=== PATIENT | female | born 1995 | race Caucasian/White ===

== ENCOUNTER 2017-10-23 08:26 | Emergency (ER) | payer BC ==
[2017-10-23] MEDS ORDERED: NS 0.9% 1000 ML* 1,000 ML IV ONE (08:57)
[2017-10-23] MEDS ORDERED: Dexamethasone IV* 4 MG/ML 5 ML VIAL (20 MG) IVPB ONE (08:57)
[2017-10-23] MEDS ORDERED: Dexamethasone IV* 4 MG/ML 1 ML (4 MG) ONE (09:01)
[2017-10-23] MEDS ORDERED: Dexamethasone IV* 4 MG/ML 1 ML (4 MG) IV SLOW PU ONE (09:01)
--- NOTE | 2017-10-23 09:42 | ED ---
Complex/Multi-Sys Presentation - HPI Summary HPI Summary: Patient is a 22-year-old female who presents to the emergency department with numerous complaints. Patient notes that she has been having symptoms of fatigue , malaise 1 month. Over the last week she developed a sore throat and nausea. Denies vomiting, diarrhea, urinary symptoms. She does note some upper abdominal pain intermittently. She was seen at health clinic yesterday and started on Keflex. Had a negative strep. Patient presents to the ER today because she was having difficulty swallowing liquids. Past medical history of asthma, IBS. Symptoms are mild to moderate in severity. Eating and swallowing makes symptoms worse. Nothing makes symptoms better. - History Of Current Complaint Hx Obtained From: Patient <NiiFermin - Last Filed: 10/23/17 11:56> <Ramy Adrian - Last Filed: 10/23/17 15:50> - History Of Current Complaint Chief Complaint: EDThroatPain Time Seen by Provider: 10/23/17 08:39 - Allergies/Home Medications Allergies/Adverse Reactions: Allergies Allergy/AdvReac Type Severity Reaction Status Date / Time No Known Allergies Allergy Verified 03/03/16 21:59 Home Medications: Home Medications Cephalexin CAP* [Keflex CAP*] 500 mg PO TID 10/23/17 [History Confirmed 10/23/17 ] Cholecalciferol TAB* [Vitamin D TAB*] 500 units PO DAILY 10/23/17 [History Confirmed 10/23/17] Fexofenadine (NF) [Natalie (NF)] 60 mg PO DAILY 10/23/17 [History Confirmed 08/11] LevoCETirizine TAB (NF) [Xyzal TAB (NF)] 5 mg PO DAILY 10/23/17 [History Confirmed 10/23/17] Magnesium Oxide [Magnesium] 250 mg PO DAILY 10/23/17 [History Confirmed 10/23/17 ] PMH/Surg Hx/FS Hx/Imm Hx Previously Healthy: Yes Respiratory History: Reports: Hx Asthma Infectious Disease History: No Infectious Disease History: Denies: History Other Infectious Disease, Traveled Outside the [place] in Last 30 Days - Family History Known Family History: Positive: Other - grandmother - stomach CA, mom - IBS Negative: Cardiac Disease - Social History Occupation: Student Lives: Dormitory/Roommates Alcohol Use: None Substance Use Type: Reports: None Smoking Status (MU): Never Smoked Tobacco <Fermin Bales - Last Filed: 10/23/17 11:56> Review of Systems Positive: Fever, Chills Eyes: Negative Positive: Sore Throat, Ear Ache Cardiovascular: Negative Negative: Palpitations, Chest Pain Negative: Shortness Of Breath, Cough Positive: Abdominal Pain, Nausea. Negative: Vomiting, Diarrhea Genitourinary: Negative Positive: Myalgia Positive: Rash - To legs. Neurological: Negative All Other Systems Reviewed And Are Negative: Yes <PalmerFermin - Last Filed: 10/23/17 11:56> Physical Exam Triage Information Reviewed: Yes Vital Signs On Initial Exam: Initial Vitals Temp Pulse Resp BP Pulse Ox 100.8 F 104 16 116/79 98 10/23/17 08:30 10/23/17 08:30 10/23/17 08:30 10/23/17 08:30 10/23/17 08:30 Vital Signs Reviewed: Yes Appearance: Positive: No Pain Distress - Patient lying on the bed, appears to feel unwell but is nontoxic. Friend present. Skin: Positive: Warm, Dry Head/Face: Positive: Normal Head/Face Inspection Eyes: Positive: Normal, Conjunctiva Clear. Negative: Conjunctiva Inflammed ENT: Positive: TMs normal, Other - Oropharynx is injected with moderate bilateral tonsillar edema, left more so than the right. No exudates. No pooling of secretions or drooling. Uvula is midline without edema or deviation. Neck: Positive: Supple, Other: - Bilateral submandibular and anterior/posterior cervical lymphadenopathy.. Negative: Nuchal Rigidity Respiratory/Lung Sounds: Positive: Clear to Auscultation, Breath Sounds Present Cardiovascular: Positive: Normal, RRR Abdomen Description: Positive: Nontender, Soft Musculoskeletal: Positive: Normal Neurological: Positive: Normal, CN Intact II-III Psychiatric: Positive: Normal <NiiFermin - Last Filed: 10/23/17 11:56> Vital Signs On Initial Exam: Initial Vitals Temp Pulse Resp BP Pulse Ox 100.8 F 104 16 116/79 98 10/23/17 08:30 10/23/17 08:30 10/23/17 08:30 10/23/17 08:30 10/23/17 08:30 <Ramy Adrian - Last Filed: 10/23/17 15:50> Diagnostics - Vital Signs Vital Signs Temp Pulse Resp BP Pulse Ox 10/23/17 08:30 100.8 F 104 16 116/79 98 - Laboratory Lab Results: Lab Results 10/23/17 Range/Units 08:37 Group A Strep Rapid Negative (Negative) Result Diagrams: 10/23/17 09:33 10/23/17 09:33 Lab Statement: Any lab studies that have been ordered have been reviewed, and results considered in the medical decision making process. <Fermin Bales - Last Filed: 10/23/17 11:56> - Vital Signs Vital Signs Temp Pulse Resp BP Pulse Ox 10/23/17 11:32 99.8 F 104 18 94/61 96 10/23/17 08:30 100.8 F 104 16 116/79 98 - Laboratory Lab Results: Lab Results 10/23/17 10/23/17 10/23/17 Range/Units 08:37 09:33 09:33 WBC 8.2 (3.5-10.8) 10^3/ul RBC 4.35 (4.0-5.4) 10^6/ul Hgb 12.1 (12.0-16.0) g/dl Hct 37 (35-47) % MCV 84 (80-97) fL MCH 28 (27-31) pg MCHC 33 (31-36) g/dl RDW 13 (10.5-15) % Plt Count 161 (150-450) 10^3/ul MPV 7.4 (7.4-10.4) um3 Neut % (Auto) 65.5 (38-83) % Lymph % (Auto) 27.1 (25-47) % Zapata % (Auto) 7.1 H (0-7) % Eos % (Auto) 0 (0-6) % Baso % (Auto) 0.3 (0-2) % Absolute Neuts (auto) 5.4 (1.5-7.7) 10^3/ul Absolute Lymphs (auto) 2.2 (1.0-4.8) 10^3/ul Absolute Monos (auto) 0.6 (0-0.8) 10^3/ul Absolute Eos (auto) 0 (0-0.6) 10^3/ul Absolute Basos (auto) 0 (0-0.2) 10^3/ul Absolute Nucleated RBC 0 10^3/ul Nucleated RBC % 0.1 Sodium 135 L (139-145) mmol/L Potassium 4.0 (3.5-5.0) mmol/L Chloride 105 (101-111) mmol/L Carbon Dioxide 25 (22-32) mmol/L Anion Gap 5 (2-11) mmol/L BUN 7 (6-24) mg/dL Creatinine 0.78 (0.51-0.95) mg/dL Est GFR ( Amer) 119.9 (>60) Est GFR (Non-Af Amer) 93.2 (>60) BUN/Creatinine Ratio 9.0 (8-20) Glucose 95 (70-100) mg/dL Calcium 9.3 (8.6-10.3) mg/dL Total Bilirubin 0.70 (0.2-1.0) mg/dL AST 95 H (13-39) U/L ALT 189 H (7-52) U/L Alkaline Phosphatase 109 H (34-104) U/L Total Protein 8.1 (6.4-8.9) g/dL Albumin 4.1 (3.2-5.2) g/dL Globulin 4.0 (2-4) g/dL Albumin/Globulin Ratio 1.0 (1-3) Beta HCG, Quant < 0.60 mIU/mL Monoscreen Positive A (Negative) Group A Strep Rapid Negative (Negative) Result Diagrams: 10/23/17 09:33 10/23/17 09:33 Lab Statement: Any lab studies that have been ordered have been reviewed, and results considered in the medical decision making process. <Ramy Adrian - Last Filed: 10/23/17 15:50> Complex Multi-Symp Course/Dx Course Of Treatment: Patient presenting to the emergency department for sore throat and throat swelling. Low-grade fever. Vital signs are stable. Oxygen saturation is 99% room air which is normal. Pt. started on IV fluids given poor oral intake and given a dose of IV Decadron for edema. Basic labs and mono ordered. Suspect mono given patient's symptoms. CBC is unremarkable. Chemistry shows elevated liver enzymes. Monospot was positive. Negative strep. On re-examination patient is resting comfortably. Results were discussed. She does not play any contact sports but advised no contact activity 4 weeks. To increase fluids and rest. Tylenol or Motrin for pain and fever as directed. To return to the ER if symptoms change or worsen. Patient understands and agrees with plan. - Diagnoses Differential Diagnoses/HQI/PQRI: Other - Pharyngitis, URI, strep, mono, tonsillar abscess Is Visit Related: No <Fermin Bales - Last Filed: 10/23/17 11:56> Course Of Treatment: I supervised the care of the physician hospital clinic assistant. I performed a history and physical on this patient. History: Sore throat, fatigue and symptoms ranging out for 1 month. Physical exam: Bilateral exudative tonsils with no abscess. Plan: Positive mono, elevated liver enzymes consistent with same diagnoses. Treat symptomatically with steroids. Treated with IV fluids, etc. here. Follow-up with [facility] office. <Ramy Adrian - Last Filed: 10/23/17 15:50> - Diagnoses Provider Diagnoses: Infectious mononucleosis Discharge - Sign-Out/Discharge Documenting (check all that apply): Discharge/Admit/Transfer - Billing Disposition and Condition Condition: GOOD Disposition: HOME <Fermin Bales - Last Filed: 10/23/17 11:56> - Billing Disposition and Condition Condition: GOOD Disposition: HOME <Ramy Adrian - Last Filed: 10/23/17 15:50> - Discharge Plan Condition: Good Disposition: HOME Patient Education Materials: Mononucleosis (ED) Forms: *School Release [facility] - Additional Instructions: Follow up with your [facility] Increase fluids and rest Can rotate between Tylenol and Motrin for pain control as directed Return to ER if symptoms change or worsen No contact sports x 4 weeks
[2017-10-23 09:54] LABS: ABS Basophils 0 10^3/ul (0-0.2); ABS Eosinophils 0 10^3/ul (0-0.6); ABS Lymphocytes 2.2 10^3/ul (1.0-4.8); ABS Monocytes 0.6 10^3/ul (0-0.8); ABS Neutrophils 5.4 10^3/ul (1.5-7.7); ABS Nucleated RBC 0 10^3/ul; Eosinophil % 0 % (0-6); Hematocrit 37 % (35-47); Hemoglobin 12.1 g/dl (12.0-16.0); Lymphocyte % 27.1 % (25-47); Mean Corpuscular HGB Conc 33 g/dl (31-36); Mean Corpuscular Hemoglobin 28 pg (27-31); Mean Corpuscular Volume 84 fL (80-97); Mean Platelet Volume 7.4 um3 (7.4-10.4); Nucleated Red Blood Cells % 0.1; Platelet Count 161 10^3/ul (150-450); Red Blood Count 4.35 10^6/ul (4.0-5.4); Red Cell Distribution Width 13 % (10.5-15); White Blood Count 8.2 10^3/ul (3.5-10.8)
[2017-10-23 10:10] LABS: EGFR Non-African American 93.2 (>60)
[2017-10-23] MEDS ORDERED: Ibuprofen TAB* 800 MG PO ONE (10:44)
[2017-10-23 11:34] VITALS: BP 94/61
== END 2017-10-23 11:32 | disposition home or self-care (01) ==
LOC: ED 08:26
DX: B27.90 Infectious mononucleosis, unspecified without complication (principal); Z32.02 Encounter for pregnancy test, result negative; J45.909 Unspecified asthma, uncomplicated
CPT/HCPCS: 36415; 80053; 84702; 85025; 86308; 87651; 96374; 99282; A9270-GY; J1100

== ENCOUNTER 2017-10-25 22:42 | Emergency (ER) | payer BC ==
[2017-10-26] MEDS ORDERED: Magnesium CITRATE* 300 ML BTL PO ONE (00:56)
[2017-10-26] MEDS ORDERED: Bisacodyl SUPP* 10 MG SUPP PR ONE (00:57)
--- NOTE | 2017-10-26 01:07 | ED ---
Jhony Sagastume Nikita, scribed for Clarita Loomis MD on 10/25/17 at 2347 . Complex/Multi-Sys Presentation - HPI Summary HPI Summary: This patient is a 22 year old F presenting to ED with a chief complaint of L shoulder pain since last night. The CC is described as aching and burning. The patient rates the pain 5/10 in severity. Symptoms aggravated by coughing, sneezing, anything that causes pressure. Symptoms alleviated by Advil (took at 2100). Patient reports my spleen hurts (since a couple days ago), cough, last BM was this morning (thin), and fever. This patient was seen in the ED 2 days ago and was dx with mono. LMP was 10/19/17. - History Of Current Complaint Chief Complaint: EDAbdPain Time Seen by Provider: 10/25/17 23:31 Hx Obtained From: Patient Onset/Duration: Sudden Onset, Lasting Days - shoulder pain last night, "spleen hurts" a couple days ago, Still Present Timing: Constant, Days Severity Initially: Moderate Location: Pain At: - spleen hurts, L shoulder pain Aggravating Factor(s): coughing, sneezing, anything that causes pressure Alleviating Factor(s): Advil (took at 2100) Associated Signs And Symptoms: Positive: Other - Patient reports my spleen hurts (since a couple days ago), cough, last BM was this morning (thin), and fever. - Allergies/Home Medications Allergies/Adverse Reactions: Allergies Allergy/AdvReac Type Severity Reaction Status Date / Time soy Allergy Anaphylatic Verified 10/25/17 23:32 Shock walnut Allergy See Comment Verified 10/25/17 23:32 PMH/Surg Hx/FS Hx/Imm Hx Previously Healthy: No - in the ED 2 days ago dx mono Respiratory History: Reports: Hx Asthma GI History: Reports: Hx Irritable Bowel Musculoskeletal History: Reports: Hx Fibromyalgia - Immunization History Date of Tetanus Vaccine: utd Date of Influenza Vaccine: fall 2016 Immunizations Up to Date: Yes Infectious Disease History: No Infectious Disease History: Denies: History Other Infectious Disease, Traveled Outside the [place] in Last 30 Days - Family History Known Family History: Positive: Other - grandmother - stomach [place], mom - IBS Negative: Cardiac Disease - Social History Alcohol Use: None Substance Use Type: Reports: None Smoking Status (MU): Never Smoked Tobacco Review of Systems Positive: Fever Positive: Cough Positive: Abdominal Pain - my spleen hurts (since a couple days ago), Other - last BM was this morning (thin) Positive: Other - L shoulder pain last night All Other Systems Reviewed And Are Negative: Yes Physical Exam - Summary Physical Exam Summary: VITAL SIGNS: Reviewed. GENERAL: ~Patient is a well-developed and nourished FEMALE who is lying comfortable in the stretcher. Patient is not in any acute respiratory distress. HEAD AND FACE: No signs of trauma. No ecchymosis, hematomas or skull depressions. No sinus tenderness. EYES: PERRLA, EOMI x 2, No injected conjunctiva, no nystagmus. EARS: Hearing grossly intact. Ear canals and tympanic membranes are within normal limits. MOUTH: Oropharynx within normal limits. NECK: Supple, trachea is midline, no adenopathy, no JVD, no carotid bruit, no c- spine tenderness, neck with full ROM. CHEST: Symmetric, no tenderness at palpation LUNGS: Clear to auscultation bilaterally. No wheezing or crackles. CVS: Regular rate and rhythm, S1 and S2 present, no murmurs or gallops appreciated. ABDOMEN: Soft, Mild diffuse tenderness. No signs of distention. No rebound, no guarding, and no masses palpated. Hypoactive bowel sounds. EXTREMITIES: FROM in all major joints, no edema, no cyanosis or clubbing. NEURO: Alert and oriented x 3. No acute neurological deficits. Speech is normal and follows commands. SKIN: Dry and warm Triage Information Reviewed: Yes Vital Signs On Initial Exam: Initial Vitals Temp Pulse Resp BP Pulse Ox 97.2 F 82 16 118/62 99 10/25/17 22:49 10/25/17 22:49 10/25/17 22:49 10/25/17 22:49 10/25/17 22:49 Vital Signs Reviewed: Yes Diagnostics - Vital Signs Vital Signs Temp Pulse Resp BP Pulse Ox 10/25/17 22:49 97.2 F 82 16 118/62 99 - Laboratory Lab Statement: Any lab studies that have been ordered have been reviewed, and results considered in the medical decision making process. - Radiology Abdomen XR Radiology Interpretation Completed By: ED Physician - Reveals increased stool., Radiologist - Pending official report. - Ultrasound No standard instances Ultrasound Interpretation Completed By: Radiologist - Spleen US reveals enlarged spleen, 12.7 x 9.7 x 4.4cm, probably related to patient's history of mononucleosis. Splenic parenchyma appears grossly homogenous. No free fluid on available images. 1.7cm accessory splenule incidentally noted. ED physician has reviewed this imaging report. Complex Multi-Symp Course/Dx Assessment/Plan: This patient is a 22 year old F presenting to ED with a chief complaint of L shoulder pain since last night. Spleen US reveals enlarged spleen , 12.7 x 9.7 x 4.4cm, probably related to patient's history of mononucleosis. Splenic parenchyma appears grossly homogenous. No free fluid on available images. 1.7cm accessory splenule incidentally noted. The abdomen XR reveals increased stool. The patient will be discharged with diagnosis of constipation. The patient is agreeable with this plan. - Diagnoses Differential Diagnoses/HQI/PQRI: Other - constipation Provider Diagnoses: Constipation Discharge - Sign-Out/Discharge Documenting (check all that apply): Discharge/Admit/Transfer - Discharge Plan Condition: Stable Disposition: HOME Patient Education Materials: Constipation (ED) Referrals: [facility] [Primary Care Provider] - 10/28/17 (Follow up with your PCP on Saturday.) Additional Instructions: RETURN TO EMERGENCY DEPARTMENT FOR ANY NEW OR WORSENING SYMPTOMS. The documentation as recorded by the Jhony pabon Nikita accurately reflects the service I personally performed and the decisions made by Vladislav mcgrath Abdul, MD.
[2017-10-26 01:17] VITALS: BP 91/64
--- NOTE | 2017-10-26 07:05 | RAD ---
INDICATION: Left upper quadrant pain, mononucleosis. COMPARISON: There are no prior studies available for comparison. TECHNIQUE: Multiple real-time images of the left upper quadrant were obtained. FINDINGS: The spleen is mildly enlarged measuring 12.7 x 9.7 x 4.4 cm. The spleen is homogeneous in echogenicity without focal abnormality. There is a small accessory spleen measuring 1.7 cm in size. IMPRESSION: MILD SPLENOMEGALY.
--- NOTE | 2017-10-26 08:05 | RAD ---
INDICATION: Abdominal pain. COMPARISON: Comparison is made with a prior study from March 03, 2016. TECHNIQUE: Supine and upright views of the abdomen were obtained. FINDINGS: The small bowel and colon appear nondistended. No free intraperitoneal air is seen. There is a moderate amount retained stool. There is a small calcific density which projects over the pelvis on the left side suggestive of a phlebolith. IMPRESSION: NO EVIDENCE FOR OBSTRUCTION.
== END 2017-10-26 01:15 | disposition home or self-care (01) ==
LOC: ED 22:42
DX: K59.00 Constipation, unspecified (principal); M25.512 Pain in left shoulder; R10.9 Unspecified abdominal pain; R05 Cough
CPT/HCPCS: 74019; 76705; 99282; A9270-GY